=== PATIENT | male | born 1990 | race African-American/Black ===

== ENCOUNTER 2025-02-01 15:34 | Emergency (ER) | payer MEDICAID ==
[~2025-02-01] VITALS: Ht 193 cm; Wt 139.0 kg
[2025-02-01 15:37] VITALS: TEMP 36.9; O2SAT 100
[2025-02-01 15:40] VITALS: O2SAT 96
[2025-02-01 17:00] LABS: BASOPHILS % 0.4 % (0.0-2.0); EOSINOPHILS % 5.9 % (0.0-5.0); HEMATOCRIT. 41.9 % (42.0-52.0); HEMOGLOBIN. 14.0 g/dL (14.0-18.0); LYMPHOCYTES % 30.7 % (20.0-50.0); MEAN PLATELET VOLUME 9.1 fl (7.4-10.4); MONOCYTES % 6.1 % (2.0-8.0); NEUTROPHILS % 56.9 % (40.0-76.0); PLATELET 222 x1000/uL (130-400); RED BLOOD CELL COUNT 4.67 mill/uL (4.7-6.1); RED CELL DISTRIBUTION WIDTH 14.4 % (11.6-14.6)
[2025-02-01 17:19] LABS: CREATININE 1.0 mg/dL (0.6-1.3); TROPONIN I HIGH SENSITIVITY < 4 ng/L (3.0-53); UREA NITROGEN BLOOD 7 mg/dL (9-23)
[2025-02-01] MEDS ORDERED: KETOROLAC 30MG/ML VIAL IM ONE (17:30)
[2025-02-01] MEDS ORDERED: METHYLPREDNISOLONE SOD SUCC 125MG/2ML (ACT-O-VIAL) IV ONE (20:30)
[2025-02-01] MEDS ORDERED: DIPHENHYDRAMINE 50MG/ML VIAL IV ONE (20:30)
[2025-02-01 20:53] VITALS: BP 108/80; PULSE 75; RESP 16
[2025-02-01] MEDS: KETOROLAC 30MG/ML VIAL IM SCH (20:53)
== END 2025-02-01 21:05 | disposition left against medical advice (07) ==
LOC: ER 15:34
DX: R07.9 Chest pain, unspecified (principal); J45.909 Unspecified asthma, uncomplicated; Z79.01 Long term (current) use of anticoagulants; Z86.711 Personal history of pulmonary embolism; Z88.8 Allergy status to other drugs, medicaments and biological substances
CPT/HCPCS: 80048; 85025; 85379; 84484; 36415; 71045; 93005; 96372; 99285; J1885; Z7610; A4606